=== PATIENT | female | born 1975 | race Caucasian/White ===

== ENCOUNTER 2016-08-30 18:24 | Emergency (ER) | payer MEDICAID ==
[~2016-08-30] VITALS: Wt 72.5 kg
[~2016-08-30 18:24] MED LIST: BACTDS PO; CEPH-443 PO; HYDR-3498 PO; HYDR-906 PO; IBUP-1542 PO; IBUP400T22 PO; IBUP800T25 PO
[2016-08-30] MEDS ORDERED: morphine 4 MG/ML VIAL ONE (21:00)
[2016-08-30] MEDS ORDERED: ONDANSETRON 4 MG INJ ONE (21:00)
[2016-08-31] MEDS ORDERED: morphine 4 MG/ML VIAL IV STA (01:36)
[2016-08-31] MEDS ORDERED: ONDANSETRON 4 MG INJ IV STA (01:36)
[2016-08-31 01:46] LABS: BASOPHILS % 0.5 % (0.0-2.0); EOSINOPHILS % 0.6 % (0.0-7.0); HEMATOCRIT 35.5 % (37.0-47.0); LYMPHOCYTES # 1.3 10^3/ul (0.8-2.9); LYMPHOCYTES % 20.4 % (15.0-51.0); MEAN CORPUSCULAR HEMOGLOBIN 31.3 pg (29.0-33.0); MEAN CORPUSCULAR HGB CONC 33.8 g/dl (32.0-37.0); MEAN CORPUSCULAR VOLUME 92.7 fl (82.0-101.0); MEAN PLATELET VOLUME 11.4 fl (7.4-10.4); MONOCYTE # 0.8 10^3/ul (0.3-0.9); NEUTROPHIL # 4.2 10^3/ul (1.6-7.5); NEUTROPHILS % 65.2 % (39.0-77.0); PLATELET COUNT 210 10^3/UL (140-415); RED BLOOD COUNT 3.83 10^6/ul (4.20-5.40); RED CELL DISTRIBUTION WIDTH 13.2 % (11.5-14.5); WHITE BLOOD COUNT 6.5 10^3/ul (4.8-10.8)
[2016-08-31 02:05] LABS: UR CLARITY CLEAR (CLEAR); UR COLOR YELLOW (YELLOW)
[2016-08-31 02:06] LABS: ADD UMIC YES; UR BILIRUBIN (Dip) NEGATIVE (NEGATIVE); UR BLOOD (Dip) 1+ mg/dL (NEGATIVE); UR GLUCOSE (Dip) NEGATIVE (NEGATIVE); UR KETONES (Dip) NEGATIVE (NEGATIVE); UR LEUKOCYTE ESTERASE (Dip) 3+ Leu/ul (NEGATIVE); UR NITRITE (Dip) NEGATIVE (NEGATIVE); UR TOTAL PROTEIN (Dip) NEGATIVE (NEGATIVE); UR UROBILINOGEN (Dip) 2+ mg/dL (NEGATIVE)
[2016-08-31 02:07] LABS: UR RBC 4 /HPF (0-5)
[2016-08-31 02:08] LABS: UR BACTERIA MODERATE /HPF (NONE SEEN)
[2016-08-31] MEDS ORDERED: IBUP-1542 PO (02:14)
[2016-08-31] MEDS ORDERED: SULF1TAB31 PO (02:14)
[2016-08-31] MEDS ORDERED: HYDR-906 PO (02:14)
[2016-08-31 02:22] LABS: ALBUMIN/GLOBULIN RATIO 1.21; BILIRUBIN,INDIRECT 0.1 mg/dl (0-1.1); BILIRUBIN,TOTAL 0.1 mg/dl (0.2-1.3); CALCIUM 8.7 mg/dl (8.4-10.2); CREATININE 0.63 mg/dl (0.44-1.00); POTASSIUM 3.7 mmol/L (3.5-5.1); TOTAL PROTEIN 7.3 g/dl (6.1-8.1)
[2016-08-31] MEDS ORDERED: CEFTRIAXONE 1 GM/50 ML (PMX) 50 ML IVPB ONE (02:30)
--- NOTE | 2016-08-31 02:36 | RADRPT ---
PROCEDURE: Right upper quadrant ultrasound. CLINICAL INDICATION: Abdominal pain. TECHNIQUE: Multiple real-time longitudinal and transverse images of the right upper quadrant of th e abdomen were acquired utilizing a curved array transducer. Images were reviewed on a high-resoluti on PACS workstation. COMPARISON: None. FINDINGS: The pancreas is obscured by bowel gas. The liver is normal in echogenicity. The liver measures 14.6 cm in length. No hepatic lesion or in trahepatic biliary ductal dilatation is seen. The portal vein is patent with hepatopetal flow. No gallstones or sludge are seen within the gallbladder lumen. The gallbladder wall is not thickene d. There is no pericholecystic fluid. The common bile duct measures 3 mm in diameter, not dilated. The right kidney measures 11.1 cm in length. Renal echogenicity is normal. There is no hydronephro sis, urinary calculus, or renal mass. The visualized portions of the aorta and IVC are unremarkable. IMPRESSION: 1. Normal appearance of the gallbladder and bile ducts. 2. The pancreas is not visualized. RPTAT: HTAR .Santana Arana MD, MD Date Time Electronically viewed and signed by .Santana Arana MD, on 08/31/2016 02:36 .R/
--- NOTE | 2016-08-31 02:37 | ERD ---
ER Documentation Chief Complaint Date/Time DATE: 08/31/16 TIME: 02:35 Chief Complaint right upper abd pain x 3 weeks HPI 41-year-old female comes in with 2 weeks of right upper quadrant abdominal pain. Radiates to right flank. She is reports nausea but denies fevers or chills. Denies hematuria. ROS All systems reviewed and are negative except as per history of present illness. Medications Home Meds Active Scripts Ibuprofen* (Motrin*) 600 Mg Tab, 600 MG PO Q6, #30 TAB Prov:LACIE VALDIVIA PA-C 08/31/16 Hydrocodone/Acetaminophen (Erath 5-325 Tablet) 1 Each Tablet, 1 TAB PO Q6H Y for PAIN, #7 TAB Prov:LACIE VALDIVIA PA-C 08/31/16 Sulfamethoxazole/Trimethoprim* (Bactrim Ds* Tablet) 1 Each Tablet, 1 TAB PO BID , #14 TAB Prov:LACIE VALDIVIA PA-C 08/31/16 Hydrocodone/Acetaminophen (Erath 5-325 Tablet) 1 Each Tablet, 1 TAB PO Q6H Y for PAIN, #15 TAB Prov:PAUL VERDUZCO 01/19/16 Ibuprofen* (Motrin*) 600 Mg Tab, 600 MG PO Q6, #30 TAB Prov:PAUL VERDUZCO 01/19/16 Cephalexin* (Keflex*) 500 Mg Capsule, 500 MG PO BID for 7 Days, CAP Prov:DC TOWNSEND PA-C 01/15/16 Sulfamethoxazole-Trimethoprim* (Bactrim* DS) 800-160 Mg Tab, 1 TAB PO BID for 7 Days, TAB Prov:MARGI MUNOZ NP 10/24/15 Ibuprofen* (Motrin*) 800 Mg Tab, 800 MG PO Q8 Y for PAIN AND OR ELEVATED TEMP, # 30 TAB Prov:MRAGI MUNOZ JAZZ SINGER 10/24/15 Ibuprofen* (Motrin*) 400 Mg Tab, 400 MG PO Q6H Y for PAIN AND OR ELEVATED TEMP, #30 TAB Prov:SARAH DODSON PA-C 03/07/15 Hydrocodone Bit-Acetaminophen* (Erath*) 5-325 Mg Tab, 1 TAB PO Q6 Y for PAIN, # 10 TAB Prov:SARAH DODSON PA-C 03/07/15 Allergies Allergies: Coded Allergies: No Known Allergy (Unverified , 08/30/16) PMhx/Soc History of Surgery: Yes (c section X2) Anesthesia Reaction: No Hx Neurological Disorder: No Hx Respiratory Disorders: No Hx Cardiac Disorders: No Hx Psychiatric Problems: No Hx Miscellaneous Medical Probl: No Hx Alcohol Use: No Hx Substance Use: No Hx Tobacco Use: No Smoking Status: Never smoker Physical Exam Vitals Vital Signs Date Time Temp Pulse Resp B/P Pulse Ox O2 Delivery O2 Flow Rate FiO2 08/30/16 18:39 98.8 81 20 127/66 100 Physical Exam General: Well-developed, well-nourished. The patient appears in no acute distress. HEENT: Head is normocephalic, atraumatic. No scleral icterus. Neck: Supple. Nontender. Lungs: Clear to auscultation. Normal air movement. Heart: Regular rate and rhythm. S1 and S2 are normal. No murmurs, gallops, or rubs. Abdomen: Soft, positive CVA tenderness, tenderness in right upper quadrant, nondistended. Bowel sounds are normoactive. Negative Campbell sign, no McBurney' s tenderness. Extremities: No clubbing or cyanosis. Normal pulses. Moving extremities x 4. No weakness. Neurologic: Alert and oriented 3. No focal deficits. Skin: Normal turgor. No rash or lesions. Result Diagram: 08/30/16210908/30/162109 Results 24 hrs Laboratory Tests Test 08/30/16 21:10 White Blood Count 6.510^3/ul Red Blood Count 3.8310^6/ul Hemoglobin 12.0g/dl Hematocrit 35.5% Mean Corpuscular Volume 92.7fl Mean Corpuscular Hemoglobin 31.3pg Mean Corpuscular Hemoglobin Concent 33.8g/dl Red Cell Distribution Width 13.2% Platelet Count 46447^3/UL Mean Platelet Volume 11.4fl Neutrophils % 65.2% Lymphocytes % 20.4% Monocytes % 13.0% Eosinophils % 0.6% Basophils % 0.5% Nucleated Red Blood Cells % 0.0/100WBC Neutrophils # 4.210^3/ul Lymphocytes # 1.310^3/ul Monocytes # 0.810^3/ul Eosinophils # 0.010^3/ul Basophils # 0.010^3/ul Nucleated Red Blood Cells # 0.010^3/ul Urine Color YELLOW Urine Clarity CLEAR Urine pH 7.0 Urine Specific [place] Urine Ketones NEGATIVEmg/dL Urine Nitrite NEGATIVEmg/dL Urine Bilirubin NEGATIVEmg/dL Urine Urobilinogen 2+mg/dL Urine Leukocyte Esterase 3+[place]/ul Urine Microscopic RBC 4/HPF Urine Microscopic WBC 98/HPF Urine Bacteria MODERATE/HPF Urine Hemoglobin 1+mg/dL Urine Glucose NEGATIVEmg/dL Urine Total Protein NEGATIVEmg/dl Urine Test NEGATIVE Sodium Level 141mmol/L Potassium Level 3.7mmol/L Chloride Level 101mmol/L Carbon Dioxide Level 27mmol/L Anion Gap 17 Blood Urea Nitrogen 21mg/dl Creatinine 0.63mg/dl Glucose Level 94mg/dl Calcium Level 8.7mg/dl Total Bilirubin 0.1mg/dl Direct Bilirubin 0.00mg/dl Indirect Bilirubin 0.1mg/dl Aspartate Amino Transf (AST/SGOT) 32IU/L Alanine Aminotransferase (ALT/SGPT) 37IU/L Alkaline Phosphatase 79IU/L Total Protein 7.3g/dl Albumin 4.0g/dl Globulin 3.30g/dl Albumin/Globulin Ratio 1.21 Lipase 100U/L Current Medications Medications (Trade) Dose Ordered Sig/Jaziel Route PRN Reason Start Time Stop Time Status Last Admin Dose Admin Ondansetron HCl (Zofran Inj) 4 mg STK-MED ONCE .ROUTE 08/30/16 21:00 08/30/16 21:01 DC Morphine Sulfate (morphine) 4 mg STK-MED ONCE .ROUTE 08/30/16 21:00 08/30/16 21:01 DC Morphine Sulfate (morphine) 4 mg ONCE STAT IV 08/31/16 01:36 08/31/16 01:37 DC 08/31/16 02:34 Ondansetron HCl 4 mg 4 mg ONCE STAT IV 08/31/16 01:36 08/31/16 01:37 DC 08/31/16 02:35 Ceftriaxone Sodium (Rocephin) 50 ml @ 100 mls/hr ONCE ONCE IVPB 08/31/16 02:30 08/31/16 02:59 Procedures/MDM ED course: Patient was given morphine 4 mg, Zofran 4 mg IV. She states that her pain returned and it did improve initially, she was given additional morphine 4 mg and Zofran 4 mg IV. She was given Rocephin 1 g IV. DIAGNOSTIC IMAGING REPORT Patient: FELICITAS BECKER : 1975 Age: 41 Sex: F MR #: [id number] DOS: 08/31/16 0100 Ordering MD: YURI CAMACHO DO Location: [facility] Room/Bed: PROCEDURE: Right upper quadrant ultrasound. CLINICAL INDICATION: Abdominal pain. TECHNIQUE: Multiple real-time longitudinal and transverse images of the right upper quadrant of the abdomen were acquired utilizing a curved array transducer. Images were reviewed on a high-resolution PACS workstation. COMPARISON: None. FINDINGS: The pancreas is obscured by bowel gas. The liver is normal in echogenicity. The liver measures 14.6 cm in length. No hepatic lesion or intrahepatic biliary ductal dilatation is seen. The portal vein is patent with hepatopetal flow. No gallstones or sludge are seen within the gallbladder lumen. The gallbladder wall is not thickened. There is no pericholecystic fluid. The common bile duct measures 3 mm in diameter, not dilated. The right kidney measures 11.1 cm in length. Renal echogenicity is normal. There is no hydronephrosis, urinary calculus, or renal mass. The visualized portions of the aorta and IVC are unremarkable. IMPRESSION: 1. Normal appearance of the gallbladder and bile ducts. 2. The pancreas is not visualized. RPTAT: HTAR .Santana Arana MD, Date Time Electronically viewed and signed by .Sanatna Arana MD, on 08/31/2016 02:36 .R/ CC: YURI CAMACHO DO Medical decision making: This 41-year-old female presents with right-sided flank pain that was right upper quadrant, evidence of urinary tract infection with flank pain, most likely early pyelonephritis. She does not have any fever but reports nausea. All labs are unremarkable. Gallbladder ultrasound was obtained secondary to radiating pain to the right upper quadrant, negative for acute Lizbeth cystitis. There is no evidence of pancreatitis or occult acute choledocholithiasis or cholangitis. Departure Diagnosis: Primary Impression: UTI (urinary tract infection) Additional Impression: Flank pain Condition: Good Patient Instructions: Pyelonephritis, Female (Adult) Additional Instructions: 6Llame al doctor MAANA y bernardino patricia MARICARMEN PARA DENTRO DE 1-2 PARHAM.Dgale a la secretaria que nosotros le instruimos hacer esta maricarmen.Avise o llame si frances condicin se empeora antes de la maricarmen. Regresa aqui si peor o no mejor. LACIE VALDIVIA PA-C Aug 31, 2016 02:37
[2016-08-31 03:10] VITALS: BP 116/71; PULSE 63; RESP 18; TEMP 98.1
[2016-09-01] MEDS ORDERED: ONDANSETRON 4 MG INJ ONE (18:01)
[2016-09-01] MEDS ORDERED: morphine 4 MG/ML VIAL ONE (18:01)
== END 2016-08-31 03:13 | disposition home or self-care (01) ==
LOC: FTE 18:24
DX: N39.0 Urinary tract infection, site not specified (principal)
CPT/HCPCS: 76705; 80053; 81001; 83690; 84703; 85025; 96374; 96375; J2270; J2405; Z7502; J0696